=== PATIENT | female | born 1995 | race Two or more races ===

== ENCOUNTER 2024-03-04 10:40 | Outpatient (RCR) | payer OTHER | END 2024-03-29 | LOC: M PT 10:40 | PROVIDERS: ATTEND Nurse Practitioner Adult Health | DX: I89.0 Lymphedema, not elsewhere classified (principal) ==

== ENCOUNTER → 2024-12-02 | Outpatient (REF) | payer OTHER, SELFPAY | LOC: M LAB REF 12:17 | PROVIDERS: ATTEND Physician Assistant Medical | DX: J06.9 Acute upper respiratory infection, unspecified (principal) ==